=== PATIENT | male | born 1960 | race Caucasian/White ===

== ENCOUNTER 2020-09-11 19:23 | Emergency (ER) | payer OTHER ==
--- NOTE | 2020-09-11 20:10 | EDM.PDOC ---
ED HPI GENERAL MEDICAL PROBLEM - General Chief Complaint: General Stated Complaint: Fever, Nasal Congestion Time Seen by Provider: 09/11/20 19:50 Source of Information: Reports: Patient History Limitations: Reports: No Limitations - History of Present Illness INITIAL COMMENTS - FREE TEXT/NARRATIVE: Patient presents to ER with complaints of a 48 hour history of sinus congestion, sore throat. STarted noting increasing chills and a headache today. Is here hunting and thought initially it was his "usual sinus infection starting" and that the outdoor weather "was making it worse". Started to feel more chilled this afternoon and the headache worsened. Has not been exposed to COVID that he is aware but does work at a car [employer]. Denies a sore throat. No shortness of breath. Does have a chronic rapid heart rate, no palpitations at present. NO nausea/vomiting or diarrhea. Good appetite yet. No loss of taste of smell. Onset: Gradual Duration: Day(s):, Getting Worse Location: Reports: Head, Chest Quality: Reports: Ache Severity: Mild Improves with: Reports: Rest Associated Symptoms: Reports: Cough, Fever/Chills, Headaches, Malaise. Denies: Confusion, Chest Pain, cough w sputum, Diaphoresis, Loss of Appetite, Nausea/Vomiting, Shortness of Breath Treatments [employer]: Reports: Acetaminophen sinus Pain Score (Numeric/FACES): 4 - Related Data Allergies Allergy/AdvReac Type Severity Reaction Status Date / Time No Known Allergies Allergy Verified 09/11/20 19:25 Home Meds: Home Meds Aspirin 81 mg PO DAILY 09/11/20 [History] Desipramine 10 mg PO BEDTIME 09/11/20 [History] Metoprolol Succinate 25 mg PO DAILY 09/11/20 [History] Naproxen 500 mg PO BID 09/11/20 [History] Simvastatin 20 mg PO BEDTIME 09/11/20 [History] lisinopriL [Lisinopril] 10 mg PO DAILY 09/11/20 [History] Past Medical History Cardiovascular History: Reports: High Cholesterol, Hypertension Gastrointestinal History: Reports: None Neurological History: Reports: TIA Other Neuro History: pt reports tia one year ago Social & Family History - Family History Family Medical History: Noncontributory - Tobacco Use Tobacco Use Status *Q: Never Tobacco User Second Hand Smoke Exposure: No - Caffeine Use Caffeine Use: Reports: None - Recreational Drug Use Recreational Drug Use: No ED ROS GENERAL - Review of Systems Review Of Systems: See Below Constitutional: Reports: Fever, Chills, Malaise, Weakness, Fatigue. Denies: Decreased Appetite HEENT: Reports: Rhinitis, Sinus Problem. Denies: Ear Pain, Throat Pain Respiratory: Reports: Cough. Denies: Shortness of Breath Cardiovascular: Denies: Chest Pain, Edema, Lightheadedness Endocrine: Reports: Fatigue GI/Abdominal: Denies: Abdominal Pain, Constipation, Diarrhea, Nausea, Vomiting : Reports: No Symptoms Musculoskeletal: Reports: No Symptoms Skin: Reports: No Symptoms Neurological: Reports: Headache Psychiatric: Reports: No Symptoms ED EXAM, GENERAL - Physical Exam Exam: See Below Exam Limited By: No Limitations General Appearance: Alert, WD/WN, No Apparent Distress Ears: Normal External Exam, Normal TMs Nose: Normal Inspection, Normal Mucosa, No Blood Throat/Mouth: Normal Inspection, Normal Oropharynx Head: Normocephalic Neck: Normal Inspection, Supple, Non-Tender Respiratory/Chest: No Respiratory Distress, Lungs Clear, Normal Breath Sounds Cardiovascular: Tachycardia GI/Abdominal: Normal Bowel Sounds, Soft, Non-Tender Extremities: Normal Inspection, No Pedal Edema Neurological: Alert, Oriented Skin Exam: Warm, Dry Course - Vital Signs Last Recorded V/S: Last Vital Signs Temp 99.0 F 09/11/20 19:33 Pulse 102 H 09/11/20 19:33 Resp 18 09/11/20 19:33 BP 147/85 H 09/11/20 19:33 Pulse Ox 98 09/11/20 19:33 - Orders/Labs/Meds Labs: Laboratory Tests 09/11/20 Range/Units 19:40 SARS CoV-2 RNA Rapid AGUILAR Positive H (NEGATIVE) - Re-Assessments/Exams Free Text/Narrative Re-Assessment/Exam: 09/11/20 20:05 COVID positive. Discussed with patient, advised to quarantine and notify his close contacts. Instructions given for treatment options that may provide some benefit. patient verbalizes understanding. Departure - Departure Time of Disposition: 20:07 Disposition: Home, Self-Care 01 Condition: Fair Clinical Impression: COVID-19 - Discharge Information *PRESCRIPTION DRUG MONITORING PROGRAM REVIEWED*: No *COPY OF PRESCRIPTION DRUG MONITORING REPORT IN PATIENT SHOAIB: No Instructions: COVID-19 Frequently Asked Questions, Prevent the Spread of COVID- 19 if You Are Sick - CDC Forms: ED Department Discharge Additional Instructions: 1. Push fluids 2. Prone positioning 3. Zinc 220 mg daily 4. Vitamin C 1000 mg daily 5. Vitamin D 1000 units daily 6. Alternate tylenol or ibuprofen for fever/discomfort 7. Follow up if develop shortness of breath or change in symptoms. Sepsis Event Note (ED) - Evaluation Sepsis Screening Result: No Definite Risk - Focused Exam Vital Signs: Vital Signs Temp Pulse Resp BP Pulse Ox 09/11/20 19:33 99.0 F 102 H 18 147/85 H 98
== END 2020-09-11 20:18 | disposition home or self-care (01) ==
LOC: CC.ED 19:23
DX: U07.1 COVID-19 (principal); I10 Essential (primary) hypertension; E78.00 Pure hypercholesterolemia, unspecified; Z79.82 Long term (current) use of aspirin; Z79.899 Other long term (current) drug therapy
CPT/HCPCS: 99283; U0002